=== PATIENT | female | born 1945 | race Caucasian/White ===

== ENCOUNTER 2023-01-25 12:26 | Outpatient (CLI) | payer MEDICARE, SELFPAY | END 2023-01-25 12:27 | disposition home or self-care (01) | LOC: NFLDREF 01-27 06:28 | PROVIDERS: PCP Nurse Practitioner Family; Referring Provider Nurse Practitioner Family; Visit Provider Nurse Practitioner Family | DX: R35.0 Frequency of micturition (principal); N30.90 Cystitis, unspecified without hematuria; N39.0 Urinary tract infection, site not specified | CPT/HCPCS: 87086 ==